=== PATIENT | male | born 1955 | race Caucasian/White ===

== ENCOUNTER → 2018-03-10 12:20 | Outpatient (CLI) | payer MEDICARE, SELFPAY ==
--- NOTE | 2018-03-10 | DI.ECHO.S_ITS ---
[facility]---------+ [facility] +---------+ : : [address] : : : : [id number] : : : : Phone: [phone]+ Echocardiogram Report + + :Name: JAMESON MAX Study Date: 03/10/2018 Height: 70 in : :[facility] Weight: 165 lb: : Gender: Male BSA: 1.9 m2 : :: 1955 Age: 62 yrs BP: 96/70 mmHg: :Reason For Study: Mitral Valve - Replacement : :Ordering Physician: Ester : :Albin Johnson Performed By: Em Presley : :Referring: Shasta Starr : + + Interpretation Summary 1) Normal left ventricular thickness, size, wall motion, and systolic function (EF 60-65%). 2) Normal right ventricular size and function. 3) There is a mechanical mitral valve that is well seated and opens well. Normal prosthetic mitral valve gradients. 4) The right ventricular systolic pressure is estimated at 25 mmHg assuming a right atrial pressure of 3 mm Hg. 5) No prior Echo available for comparison. Procedure: A two-dimensional transthoracic echocardiogram with color flow and Doppler was performed. The study quality was technically adequate. Most of the acoustic windows were suboptimal, but the best imaging was obtained from the subcostal window. The patient was in normal sinus rhythm during the exam. Left Ventricle: The left ventricle is normal in size, wall thickness, and systolic function without any focal wall motion abnormalities. The ejection fraction is estimated to be 60-65%. Right Ventricle: The right ventricle is normal size. The right ventricular systolic function is normal. Atria: The left atrium is moderately dilated. Right atrial size is normal. The interatrial septum is intact with no evidence for an atrial septal defect. Mitral Valve: There is a mechanical mitral valve. The prosthetic mitral valve is well-seated. The prosthetic mitral valve appears to open well. Normal prosthetic mitral valve gradients. The mitral valve mean gradient is 3 mmHg. There is mild mitral regurgitation. Aortic Valve: The aortic valve opens well. There is no aortic valve stenosis. There is trace aortic regurgitation. Tricuspid Valve: The tricuspid valve leaflets are thin and pliable. There is trace tricuspid regurgitation. The right ventricular systolic pressure is estimated at 25 mmHg assuming a right atrial pressure of 3 mm Hg. Pulmonic Valve: The pulmonic valve is not well visualized. Great Vessels: The aortic root is normal size. The ascending aorta could not be visualized. The ascending aorta is at the upper limits of normal in size. The IVC is of normal diameter and collapses greater than 50% with a sniff. This suggests a low right atrial pressure of 3 mm Hg. Pericardium/ Pleura There is no pericardial effusion. There is no pleural effusion. MMode/2D Measurements & Calculations LVIDd: 5.1 cm Ao root diam: 3.8 cm LVIDs: 3.3 cm Aortic Jxn: 2.8 cm FS: 35.3 % Ao Arch Diam (Prox Trans): 3.1 cm IVSd: 0.85 cm LVPWd: 0.91 cm LV denise. diameter/BSA (cm/m^2): 2.7 LV sys. diameter/BSA (cm/m^2): 1.7 LA dimension: 4.6 cm RA long axis: 4.9 cm LA A2 area: 26.4 cm2 RA area: 18.2 cm2 LA A4 area: 26.5 cm2 RA vol: 57.4 ml LA length (vol): 5.3 cm RA : 29.8 ml/m2 LA vol: 111.3 ml IVC diam: 1.5 cm LA vol index: 57.9 ml/m2 RVDd major: 6.9 cm RVD1 (basal): 4.2 cm RVD2 (mid): 3.8 cm Doppler Measurements & Calculations Ao V2 max: 118.5 cm/sec MV E max dilan: 128.4 cm/sec Ao V2 mean: 74.8 cm/sec MV A max dilan: 151.2 cm/sec Ao max P.6 mmHg MV E/A: 0.85 Ao mean P.7 mmHg MV dec time: 0.21 sec Ao V2 VTI: 22.8 cm MV P1/2t: 62.2 msec TR max dilan: 235.2 cm/sec MV P1/2t max dilan: 128.6 cm/sec TR max P.1 mmHg MVA(P1/2t): 3.5 cm2 Reading Physician:02:07 PM
== END ==
PROVIDERS: Family Provider Physician Assistant; PCP Physician Assistant; Visit Provider Internal Medicine Cardiovascular Disease
DX: Z95.2 Presence of prosthetic heart valve (principal)
CPT/HCPCS: 93306

== ENCOUNTER → 2019-02-09 10:52 | Outpatient (CLI) | payer MEDICARE, SELFPAY ==
[2019-02-09 12:13] LABS: Hematocrit 42.9 % (41-53); Hemoglobin 14.4 g/dL (13.5-17.5); Mean Corpuscular HGB Conc 33.5 % (30-36); Mean Corpuscular Hemoglobin 31.6 PG (26-34); Mean Corpuscular Volume 94.3 fL (80-100); Platelet Count 240 X10^3/uL (150-400); Red Blood Cell Count 4.55 X10^6/uL (4.5-5.9); Red Cell Distribution Width 13.4 % (11.6-14.8); White Blood Cell Count 7.2 X10^3/uL (4.5-11.0)
[2019-02-09 12:35] LABS: Alanine Aminotransferase 14 IU/L (21-72); Albumin 4.3 g/dL (3.5-5.0); Albumin Globulin Ratio 1.7 (1.0-2.8); Alkaline Phosphatase 53 U/L (38-126); Aspartate Aminotransferase 30 IU/L (17-59); BUN Creatinine Ratio 13.8 (6-22); Blood Urea Nitrogen 11 mg/dL (9-20); Carbon Dioxide 28 mmol/L (22-32); Chloride 99 mmol/L (98-107); Cholesterol 140 mg/dL (140-199); Estimated Glomerular Filt Rate > 60.0 mL/min (>60); Globulin 2.6 g/dL (1.7-4.1); HDL Cholesterol 34 mg/dL (40-60); HEMOLYSIS < 15 (0-50); LDL Cholesterol Calculated 68 mg/dL (<100); Potassium 4.5 mmol/L (3.4-5.1); Sodium 135 mmol/L (137-145); Total Protein 6.9 g/dL (6.3-8.2); Triglycerides 189 mg/dL (35-150)
[2019-02-09 12:36] LABS: Bilirubin Total 1.5 mg/dL (0.2-1.3); Glucose 83 mg/dL (80-110)
[2019-02-09 13:05] LABS: Prostate Specific Antigen Scrn 2.35 ng/mL (0.1-4.0)
== END ==
PROVIDERS: Visit Provider Nurse Practitioner Family
DX: J44.9 Chronic obstructive pulmonary disease, unspecified (principal); Z13.6 Encounter for screening for cardiovascular disorders; Z12.5 Encounter for screening for malignant neoplasm of prostate; Z12.11 Encounter for screening for malignant neoplasm of colon
CPT/HCPCS: 36415; 80053; 80061; 82274; 85027; G0103

== ENCOUNTER → 2019-05-09 13:11 | Outpatient (CLI) | payer MEDICARE, SELFPAY ==
[2019-05-09 13:39] LABS: INR 1.4 (0.9-1.3); Prothrombin Time 16.6 SECONDS (10.1-12.7)
[2019-05-09 14:31] LABS: Alanine Aminotransferase 16 IU/L (21-72); Albumin 4.3 g/dL (3.5-5.0); Albumin Globulin Ratio 1.7 (1.0-2.8); Alkaline Phosphatase 50 U/L (38-126); Aspartate Aminotransferase 30 IU/L (17-59); Bilirubin Total 1.2 mg/dL (0.2-1.3); Bilirubin Unconjugated 0.9 mg/dL (0.0-1.1); Globulin 2.5 g/dL (1.7-4.1); HEMOLYSIS 24 (0-50); Total Protein 6.8 g/dL (6.3-8.2)
== END ==
PROVIDERS: PCP Nurse Practitioner Family; Visit Provider Nurse Practitioner Family
DX: Z95.2 Presence of prosthetic heart valve (principal); R17 Unspecified jaundice
CPT/HCPCS: 36415; 80076; 85610

== ENCOUNTER → 2019-08-22 08:46 | Outpatient (CLI) | payer MEDICARE, SELFPAY ==
[2019-08-22 09:45] LABS: Add Manual Diff / Slide Review NO; Basophils Absolute Auto 100 /uL (0-100); Eosinophils Absolute Auto 600 /uL (0-450); Eosinophils Percent Auto 8.8 % (2-4); Hematocrit 43.9 % (41-53); Hemoglobin 14.8 g/dL (13.5-17.5); Lymphocytes Absolute Auto 2300 /uL (1100-4500); Mean Corpuscular HGB Conc 33.7 % (30-36); Mean Corpuscular Volume 94.8 fL (80-100); Monocytes Absolute Auto 500 /uL (0-900); Monocytes Percent Auto 7.5 % (3-14); Neutrophils Absolute Auto 3500 /uL (1500-7000); Neutrophils Percent Auto 49.7 % (50-75); Platelet Count 250 X10^3/uL (150-400); Red Blood Cell Count 4.63 X10^6/uL (4.5-5.9); Red Cell Distribution Width 13.5 % (11.6-14.8)
[2019-08-22 10:13] LABS: Alanine Aminotransferase 12 IU/L (<50); Albumin 4.2 g/dL (3.5-5.0); Albumin Globulin Ratio 1.4 (1.0-2.8); Alkaline Phosphatase 43 U/L (38-126); Aspartate Aminotransferase 39 IU/L (17-59); BUN Creatinine Ratio 11.1 (6-22); Bilirubin Total 1.6 mg/dL (0.2-1.3); Blood Urea Nitrogen 10 mg/dL (9-20); Calcium 8.5 mg/dL (8.4-10.2); Carbon Dioxide 32 mmol/L (22-32); Chloride 100 mmol/L (98-107); Cholesterol 174 mg/dL (140-199); Estimated Glomerular Filt Rate > 60.0 mL/min (>60); Globulin 2.9 g/dL (1.7-4.1); Glucose 93 mg/dL (80-110); HDL Cholesterol 34 mg/dL (40-60); HEMOLYSIS < 15 (0-50); LDL Cholesterol Calculated 114 mg/dL (<100); Potassium 4.5 mmol/L (3.4-5.1); Sodium 139 mmol/L (137-145); Total Protein 7.1 g/dL (6.3-8.2); Triglycerides 129 mg/dL (35-150)
== END ==
PROVIDERS: PCP Nurse Practitioner Family; Visit Provider Nurse Practitioner Family
DX: Z13.6 Encounter for screening for cardiovascular disorders (principal)
CPT/HCPCS: 36415; 80053; 80061; 85025

== ENCOUNTER → 2019-11-02 13:37 | Outpatient (CLI) | payer MEDICARE, SELFPAY ==
[2019-11-02 14:16] LABS: INR 3.2 (0.9-1.3); Prothrombin Time 36.9 SECONDS (10.1-12.7)
== END ==
PROVIDERS: PCP Nurse Practitioner Family; Referring Provider Nurse Practitioner Family; Visit Provider Nurse Practitioner Family
DX: Z51.81 Encounter for therapeutic drug level monitoring (principal); Z95.2 Presence of prosthetic heart valve
CPT/HCPCS: 36415; 85610

== ENCOUNTER → 2020-02-26 08:02 | Outpatient (CLI) | payer MEDICARE, SELFPAY ==
[2020-02-26 12:30] LABS: Alanine Aminotransferase 12 IU/L (<50); Albumin 4.3 g/dL (3.5-5.0); Albumin Globulin Ratio 1.6 (1.0-2.8); Alkaline Phosphatase 45 U/L (38-126); Aspartate Aminotransferase 36 IU/L (17-59); BUN Creatinine Ratio 13.5 (6-22); Bilirubin Total 1.1 mg/dL (0.2-1.3); Blood Urea Nitrogen 12 mg/dL (9-20); Carbon Dioxide 24 mmol/L (22-32); Chloride 106 mmol/L (98-107); Cholesterol 153 mg/dL (140-199); Estimated Glomerular Filt Rate > 60.0 mL/min (>60); Globulin 2.7 g/dL (1.7-4.1); Glucose 85 mg/dL (80-110); HDL Cholesterol 33 mg/dL (40-60); HEMOLYSIS < 15 (0-50); LDL Cholesterol Calculated 90 mg/dL (<100); Potassium 4.8 mmol/L (3.4-5.1); Sodium 140 mmol/L (137-145); Triglycerides 149 mg/dL (35-150)
== END ==
PROVIDERS: PCP Nurse Practitioner Family; Referring Provider Nurse Practitioner Family; Visit Provider Nurse Practitioner Family
DX: J44.9 Chronic obstructive pulmonary disease, unspecified (principal); E78.2 Mixed hyperlipidemia
CPT/HCPCS: 36415; 80053; 80061

== ENCOUNTER → 2020-09-17 08:02 | Outpatient (CLI) | payer MEDICARE, SELFPAY ==
[2020-09-17 09:20] LABS: INR 3.8 (0.9-1.3); Prothrombin Time 42.7 SECONDS (10.1-12.7)
[2020-09-17 09:22] LABS: Hematocrit 44.3 % (41-53); Hemoglobin 14.8 g/dL (13.5-17.5); Mean Corpuscular HGB Conc 33.5 % (30-36); Mean Corpuscular Hemoglobin 31.4 PG (26-34); Mean Corpuscular Volume 93.8 fL (80-100); Platelet Count 236 X10^3/uL (150-400); Red Blood Cell Count 4.72 X10^6/uL (4.5-5.9); White Blood Cell Count 6.4 X10^3/uL (4.5-11.0)
[2020-09-17 09:54] LABS: Alanine Aminotransferase 17 IU/L (<50); Albumin 4.6 g/dL (3.5-5.0); Albumin Globulin Ratio 1.5 (1.0-2.8); Alkaline Phosphatase 48 U/L (38-126); Aspartate Aminotransferase 37 IU/L (17-59); BUN Creatinine Ratio 13.8 (6-22); Bilirubin Total 1.2 mg/dL (0.2-1.3); Blood Urea Nitrogen 13 mg/dL (9-20); Calcium 9.6 mg/dL (8.4-10.2); Carbon Dioxide 33 mmol/L (22-32); Chloride 102 mmol/L (98-107); Cholesterol 188 mg/dL (140-199); Estimated Glomerular Filt Rate > 60.0 mL/min (>60); Glucose 96 mg/dL (80-110); HDL Cholesterol 42 mg/dL (40-60); LDL Cholesterol Calculated 120 mg/dL (<100); Sodium 138 mmol/L (137-145); Total Protein 7.6 g/dL (6.3-8.2); Triglycerides 130 mg/dL (35-150)
[2020-09-17 10:19] LABS: HEMOLYSIS 21 (0-50)
[2020-09-17 10:21] LABS: Potassium 6.1 mmol/L (3.4-5.1)
== END ==
PROVIDERS: PCP Nurse Practitioner Family; Referring Provider Nurse Practitioner Family; Visit Provider Nurse Practitioner Family
DX: J44.9 Chronic obstructive pulmonary disease, unspecified (principal); E78.6 Lipoprotein deficiency; Z95.2 Presence of prosthetic heart valve
CPT/HCPCS: 36415; 80053; 80061; 85027; 85610

== ENCOUNTER → 2020-09-18 08:27 | Outpatient (CLI) | payer MEDICARE, SELFPAY ==
[2020-09-18 10:16] LABS: HEMOLYSIS 37 (0-50); Potassium 4.3 mmol/L (3.4-5.1)
== END ==
PROVIDERS: PCP Nurse Practitioner Family; Referring Provider Nurse Practitioner Family; Visit Provider Nurse Practitioner Family
DX: E87.5 Hyperkalemia (principal)
CPT/HCPCS: 36415; 84132

== ENCOUNTER → 2020-10-09 13:33 | Outpatient (CLI) | payer MEDICARE, SELFPAY ==
[2020-10-10 09:04] LABS: Fecal Immunochemical Test Negative (Negative)
== END ==
PROVIDERS: PCP Nurse Practitioner Family; Referring Provider Nurse Practitioner Family; Visit Provider Nurse Practitioner Family
DX: Z12.11 Encounter for screening for malignant neoplasm of colon (principal)
CPT/HCPCS: 82274

== ENCOUNTER → 2021-09-11 15:01 | Outpatient (CLI) | payer MEDICARE, SELFPAY ==
[2021-09-11 17:51] LABS: INR 3.2 (0.9-1.3); Prothrombin Time 37.6 SECONDS (10.1-12.7)
== END ==
PROVIDERS: PCP Nurse Practitioner Family; Referring Provider Nurse Practitioner Family; Visit Provider Nurse Practitioner Family
DX: Z79.01 Long term (current) use of anticoagulants (principal)
CPT/HCPCS: 36415; 85610

== ENCOUNTER → 2022-11-18 07:11 | Outpatient (CLI) | payer MEDICARE, SELFPAY ==
[2022-11-18 08:14] LABS: Add Manual Diff / Slide Review NO; Basophils Absolute Auto 100 /uL (0-100); Basophils Percent Auto 1.6 % (0-2); Eosinophils Absolute Auto 300 /uL (0-450); Eosinophils Percent Auto 4.9 % (2-4); Hematocrit 43.6 % (41-53); Hemoglobin 14.8 g/dL (13.5-17.5); Lymphocytes Absolute Auto 2100 /uL (1100-4500); Lymphocytes Percent Auto 30.6 % (25-40); Mean Corpuscular Hemoglobin 31.3 PG (26-34); Mean Corpuscular Volume 92.1 fL (80-100); Monocytes Absolute Auto 500 /uL (0-900); Monocytes Percent Auto 7.9 % (3-14); Neutrophils Absolute Auto 3800 /uL (1500-7000); Platelet Count 252 X10^3/uL (150-400); Red Blood Cell Count 4.73 X10^6/uL (4.5-5.9); Red Cell Distribution Width 14.3 % (11.6-14.8); White Blood Cell Count 6.8 X10^3/uL (4.5-11.0)
[2022-11-18 08:35] LABS: Alanine Aminotransferase 15 IU/L (<50); Albumin 4.4 g/dL (3.5-5.0); Albumin Globulin Ratio 1.4 (1.0-2.8); Alkaline Phosphatase 53 U/L (38-126); Aspartate Aminotransferase 34 IU/L (17-59); BUN Creatinine Ratio 15.5 (6-22); Bilirubin Total 1.3 mg/dL (0.2-1.3); Blood Urea Nitrogen 16 mg/dL (9-20); Calcium 8.7 mg/dL (8.4-10.2); Carbon Dioxide 31 mmol/L (22-32); Chloride 102 mmol/L (98-107); Cholesterol 179 mg/dL (140-199); Estimated Glomerular Filt Rate > 60 mL/min (>60); Globulin 3.2 g/dL (1.7-4.1); Glucose 105 mg/dL (80-110); HDL Cholesterol 38 mg/dL (40-60); HEMOLYSIS < 15 (0-50); LDL Cholesterol Calculated 115 mg/dL (<100); Potassium 4.8 mmol/L (3.4-5.1); Sodium 141 mmol/L (137-145); Total Protein 7.6 g/dL (6.3-8.2); Triglycerides 131 mg/dL (35-150)
[2022-11-18 09:00] LABS: Prostate Specific Antigen 4.16 ng/mL (0.10-4.00)
== END ==
PROVIDERS: PCP Family Medicine; Referring Provider Family Medicine; Visit Provider Family Medicine
DX: J44.9 Chronic obstructive pulmonary disease, unspecified (principal); N40.0 Benign prostatic hyperplasia without lower urinary tract symptoms
CPT/HCPCS: 36415; 80053; 80061; 84153; 85025

== ENCOUNTER → 2022-12-01 10:47 | Outpatient (CLI) | payer MEDICARE, SELFPAY ==
--- NOTE | 2022-12-01 10:50 | DI.RAD.S_ITS ---
PROCEDURE: XR CHEST 2V INDICATIONS: Chronic Cough TECHNIQUE: 2 views of the chest were acquired. COMPARISON: [facility], CT, PE STUDY (CTA CHEST), 12/10/2017, 14:58. [facility], CR, CHEST 2 VIEW, 12/10/2017, 12:17. FINDINGS: Surgical changes and devices: There is a prosthetic mitral valve.. Lungs and pleura: Retrocardiac opacity may be infiltrate, scar or atelectasis. There is a left hemidiaphragm eventration. Prominent pericardial fat pad is seen on the right side. No pleural effusions or pneumothorax. Mediastinum: Mediastinal contours are normal. Heart size is normal. Bones and chest wall: No suspicious bony abnormalities. Soft tissues appear unremarkable. IMPRESSION: Retrocardiac infiltrate, scar or atelectasis. Dictated by: Swathi Garcia M.D. on 12/01/2022 at 11:27 Approved by: Swathi Garcia M.D. on 12/01/2022 at 11:27
== END ==
PROVIDERS: PCP Family Medicine; Referring Provider Family Medicine; Visit Provider Family Medicine
DX: J44.9 Chronic obstructive pulmonary disease, unspecified (principal); R05.3 Chronic cough
CPT/HCPCS: 71046

== ENCOUNTER → 2022-12-17 15:42 | Outpatient (CLI) | payer MEDICARE, SELFPAY ==
--- NOTE | 2022-12-17 15:43 | DI.CT.S_ITS ---
PROCEDURE: CT CHEST W CON INDICATIONS: abnormal xr TECHNIQUE: After the administration of intravenous contrast, 5 mm thick sections acquired from the pulmonary apices to the posterior costophrenic angles. 1 mm axial lung, 5 mm thick coronal and sagittal reformats and 7 mm axial MIP were acquired. For radiation dose reduction, the following was used: automated exposure control, adjustment of mA and/or kV according to patient size. COMPARISON: [facility], CT, PE STUDY (CTA CHEST), 12/10/2017, 14:58. [facility], CR, XR CHEST 2V, 12/01/2022, 11:09. FINDINGS: Lungs and pleura: Emphysema is present. Similar cyst/pneumatocele medial left lower lobe. Large right-sided Bochdalek hernia containing fat present as before. A right lower lobe cyst/pneumatocele is also present. Mild bronchial wall thickening most pronounced at the lower lobes. No pleural effusion. Mediastinum: No pericardial effusion. Thoracic aorta and central pulmonary arteries are normal in size. Esophagus is normal in caliber. Few prominent/borderline enlarged mediastinal lymph nodes present, significantly decreased since the prior CT. Multivessel coronary artery calcifications and/or stents. Mitral valve prosthesis. Bones and chest wall: No axillary or supraclavicular adenopathy by size criteria. Multilevel degenerative change of the visualized spine. Abdomen: A few scattered small hepatic hypodensities are present, too small to characterize. IMPRESSION: 1. No consolidation visualized. 2. Basilar predominant bronchial wall thickening, nonspecific, could indicate a bronchitis. Dictated by: Rafael Lim M.D. on 12/17/2022 at 21:09 Approved by: Rafael Lim M.D. on 12/17/2022 at 21:25
== END ==
PROVIDERS: PCP Family Medicine; Referring Provider Family Medicine; Visit Provider Family Medicine
DX: J44.9 Chronic obstructive pulmonary disease, unspecified (principal); K44.9 Diaphragmatic hernia without obstruction or gangrene; Z72.0 Tobacco use; Z95.2 Presence of prosthetic heart valve
CPT/HCPCS: 71260; Q9967

== ENCOUNTER → 2023-01-04 09:24 | Outpatient (CLI) | payer MEDICARE, SELFPAY ==
[2023-01-04 10:23] LABS: Prothrombin Time 60.4 SECONDS (10.1-12.7)
[2023-01-04 10:26] LABS: INR 5.2 (0.9-1.3)
== END ==
PROVIDERS: PCP Family Medicine; Referring Provider Family Medicine; Visit Provider Family Medicine
DX: I82.409 Acute embolism and thrombosis of unspecified deep veins of unspecified lower extremity (principal); R97.20 Elevated prostate specific antigen [PSA]
CPT/HCPCS: 36415; 84153; 85610

== ENCOUNTER → 2023-01-11 09:22 | Outpatient (CLI) | payer MEDICARE, SELFPAY ==
[2023-01-11 10:05] LABS: INR 2.2 (0.9-1.3); Prothrombin Time 25.4 SECONDS (10.1-12.7)
== END ==
PROVIDERS: PCP Family Medicine; Referring Provider Family Medicine; Visit Provider Family Medicine
DX: Z79.01 Long term (current) use of anticoagulants (principal)
CPT/HCPCS: 36415; 85610

== ENCOUNTER → 2023-11-19 09:31 | Outpatient (CLI) | payer MEDICARE, SELFPAY ==
[2023-11-19 10:17] LABS: Add Manual Diff / Slide Review NO; Basophils Absolute Auto 100 /uL (0-100); Eosinophils Absolute Auto 200 /uL (0-450); Eosinophils Percent Auto 3.1 % (2-4); Hematocrit 43.6 % (41-53); Hemoglobin 14.8 g/dL (13.5-17.5); Lymphocytes Absolute Auto 2200 /uL (1100-4500); Lymphocytes Percent Auto 30.6 % (25-40); Mean Corpuscular HGB Conc 33.9 % (30-36); Mean Corpuscular Hemoglobin 31.2 PG (26-34); Mean Corpuscular Volume 92.2 fL (80-100); Monocytes Absolute Auto 600 /uL (0-900); Monocytes Percent Auto 7.9 % (3-14); Neutrophils Absolute Auto 4100 /uL (1500-7000); Neutrophils Percent Auto 57.4 % (50-75); Platelet Count 256 X10^3/uL (150-400); Red Blood Cell Count 4.72 X10^6/uL (4.5-5.9); Red Cell Distribution Width 13.6 % (11.6-14.8); White Blood Cell Count 7.1 X10^3/uL (4.5-11.0)
[2023-11-19 10:42] LABS: Alanine Aminotransferase 12 IU/L (<50); Albumin 4.3 g/dL (3.5-5.0); Albumin Globulin Ratio 1.4 (1.0-2.8); Alkaline Phosphatase 51 U/L (38-126); Aspartate Aminotransferase 30 IU/L (17-59); BUN Creatinine Ratio 9.5 (6-22); Bilirubin Total 1.3 mg/dL (0.2-1.3); Blood Urea Nitrogen 9 mg/dL (9-20); Calcium 8.8 mg/dL (8.4-10.2); Carbon Dioxide 31 mmol/L (22-32); Chloride 103 mmol/L (98-107); Cholesterol 173 mg/dL (140-199); Estimated Glomerular Filt Rate > 60 mL/min (>60); Globulin 3.1 g/dL (1.7-4.1); Glucose 84 mg/dL (80-110); HDL Cholesterol 41 mg/dL (40-60); HEMOLYSIS < 15 (0-50); LDL Cholesterol Calculated 92 mg/dL (<100); Potassium 4.8 mmol/L (3.4-5.1); Sodium 136 mmol/L (137-145); Total Protein 7.4 g/dL (6.3-8.2); Triglycerides 200 mg/dL (35-150)
[2023-11-19 11:15] LABS: Prostate Specific Antigen Scrn 4.64 ng/mL (0.1-4.0)
== END ==
PROVIDERS: PCP Family Medicine; Referring Provider Family Medicine; Visit Provider Family Medicine
DX: Z12.5 Encounter for screening for malignant neoplasm of prostate (principal); R97.20 Elevated prostate specific antigen [PSA]; E78.2 Mixed hyperlipidemia; J44.9 Chronic obstructive pulmonary disease, unspecified
CPT/HCPCS: 36415; 80053; 80061; 85025; G0103

== ENCOUNTER → 2023-11-30 10:07 | Outpatient (CLI) | payer MEDICARE, SELFPAY ==
--- NOTE | 2023-11-30 10:25 | DI.CT.S_ITS ---
PROCEDURE: CT LUNG LOW DOSE SCREENING INDICATIONS: lung screening TECHNIQUE: Noncontrast 2.0-2.5 mm thick sections acquired from the pulmonary apices to the posterior costophrenic angles. 7 mm thick axial MIP, and 5 mm coronal and sagittal reformats were then acquired. For radiation dose reduction, the following was used: automated exposure control, adjustment of mA and/or kV according to patient size. COMPARISON: None. FINDINGS: Image quality: Diagnostic. Lower Neck: No enlarged lymph nodes. Thyroid: No thyroid nodules which require sonographic follow up, per consensus guidelines. Axillae: No enlarged lymph nodes. Chest Wall: Unremarkable. Bones: Unremarkable. Lungs and Pleura: No pneumothorax or pleural effusions. Moderate, right Bochdalek hernia containing fat. Moderate centrilobular emphysema. Mild paraseptal emphysema. Heart: Heart size is normal. No pericardial effusion. Marked coronary calcifications for age. Annular calcification mitral valve, with prosthesis. Thoracic Vessels: The aorta and pulmonary arteries demonstrate normal size. Mediastinum and Bri[place]: No enlarged lymph nodes. Esophagus: No wall thickening. No hiatal hernia. Upper Abdomen: Visualized upper abdomen solid organs and bowel loops appear normal. IMPRESSION: No suspicious pulmonary nodules. LUNG-RADS 1; continued annual screening, if eligible. Clinically Significant Non-pulmonary Findings: Marked coronary artery calcifications for age. Consider cardiology referral. Dictated by: Kumar Ortega M.D. on 11/30/2023 at 11:38 Approved by: Kumar Ortega M.D. on 11/30/2023 at 11:46
== END ==
LOC: CT 10:07
PROVIDERS: PCP Family Medicine; Referring Provider Family Medicine; Visit Provider Family Medicine
DX: Z12.2 Encounter for screening for malignant neoplasm of respiratory organs (principal); F17.210 Nicotine dependence, cigarettes, uncomplicated; I25.10 Atherosclerotic heart disease of native coronary artery without angina pectoris; I34.81 Nonrheumatic mitral (valve) annulus calcification; J43.2 Centrilobular emphysema; K45.8 Other specified abdominal hernia without obstruction or gangrene; Z95.2 Presence of prosthetic heart valve
CPT/HCPCS: 71271

== ENCOUNTER → 2023-12-21 09:20 | Outpatient (CLI) | payer MEDICARE, SELFPAY ==
--- NOTE | 2023-12-21 09:30 | DI.ECHO.S_ITS ---
[facility] +---------+ [facility] +---------+ : : [address] : : : : [id number] : : : : Phone: [phone]+ Echocardiogram Report + + :Name: JAMESON MAX Study Date: 12/21/2023 Height: 70 in : :[facility] ReadingLocation: Weight: 180 lb : : Gender: Male BSA: 2.0 m2 : :: 1955 Age: 68 yrs BP: 126/89 mmHg: :Reason For Study: FOLLOW UP VALVE REPLACEMENT : :Ordering Physician: ARBEN, : :MARISOL Performed By: Ayesha Dobbins : :Referring: MARISOL THEODORE : + + Interpretation Summary 1) Normal left ventricular thickness, size, wall motion, and systolic function (EF 55-60%). 2) Normal right ventricular size with mildly reduced function. 3) There is a mechanical mitral valve that is well seated and opens well. Normal prosthetic mitral valve gradients (mean inflor gradient 3.6mmHg). 4) Compared to the Echo done 03/10/2018, no significant change. Procedure: A two-dimensional transthoracic echocardiogram with color flow and Doppler was performed. The study quality was technically adequate. Comparison is made with the echocardiogram of 03/10/2018. The patient was in sinus rhythm with heart rates between 71-78 bpm during the exam. Left Ventricle: The left ventricle is normal in size. Left ventricular wall thickness is mildly increased. The ejection fraction is estimated to be 55- 60%. There are no focal wall motion abnormalities. Septal motion is consistent with post-operative state. Diastolic function could not be accurately assessed due to confounding valvular disease. Right Ventricle: The right ventricle is normal size. Right ventricular systolic function is mildly reduced. Atria: The left atrium is mildly dilated. Right atrial size is normal. There is no Doppler evidence for an interatrial shunt. Mitral Valve: There is a mechanical mitral valve. The mitral valve mean gradient is 3.6 mmHg. There is trace mitral regurgitation. Aortic Valve: The aortic valve is not well visualized. The aortic valve is mildly calcified. There is no aortic valve stenosis. There is trace aortic regurgitation. Tricuspid Valve: The tricuspid valve is normal in structure and function. There is trace tricuspid regurgitation. Pulmonary artery pressures cannot be estimated because of the lack of a measurable TR jet velocity. Pulmonic Valve: The pulmonic valve is not well visualized. There is no pulmonic valvular regurgitation. Great Vessels: The aortic root is normal size. The ascending aorta could not be visualized. The IVC is of normal diameter and collapses greater than 50% with a sniff. This suggests a low right atrial pressure of 3 mm Hg. Pericardium/ Pleura There is no pericardial effusion. There is no pleural effusion. MMode/2D Measurements & Calculations LVIDd: 4.6 cm LVOT diam: 2.7 cm LVIDs: 3.6 cm Ao root diam: 3.5 cm FS: 21.2 % Ao Arch Diam (Prox Trans): 2.9 cm IVSd: 0.95 cm LVPWd: 0.91 cm LV denise. diameter/BSA (cm/m^2): 2.3 LV sys. diameter/BSA (cm/m^2): 1.8 LA A2 area: 29.1 cm2 RA long axis: 4.6 cm LA A4 area: 19.0 cm2 RA area: 15.4 cm2 LA length (vol): 5.5 cm RA vol: 44.1 ml LA vol: 84.6 ml RA : 22.1 ml/m2 LA vol index: 42.4 ml/m2 IVC diam: 1.1 cm RVD1 (basal): 3.0 cm RVD2 (mid): 3.3 cm TAPSE: 1.3 cm Doppler Measurements & Calculations Ao V2 max: 126.7 cm/sec LVOT Max Suresh: 65.3 cm/sec Ao V2 mean: 91.9 cm/sec LV V1 max P.7 mmHg Ao max P.4 mmHg LV V1 VTI: 13.3 cm Ao mean P.7 mmHg FELICE(I,D): 3.0 cm2 Ao V2 VTI: 25.9 cm FELICE(V,D): 3.0 cm2 sev ratio: 0.51 FELICE indexed to BSA (cm^2/m^2): 1.5 MV E max suresh: 101.9 cm/sec TR max suresh: 234.3 cm/sec MV A max suresh: 115.9 cm/sec TR max P.0 mmHg MV E/A: 0.88 Med Peak E' Suresh: 5.1 cm/sec E/E' med: 20.0 Lat Peak E' Suresh: 7.0 cm/sec E/E' lat: 14.6 E/e' average: 17.3 MV dec time: 0.22 sec MVA(VTI): 2.2 cm2 MV V2 mean: 85.8 cm/sec SV(LVOT): 77.3 ml MV mean P.6 mmHg MV V2 VTI: 35.7 cm Reading Physician:12:47 PM
== END ==
PROVIDERS: PCP Family Medicine; Referring Provider Family Medicine; Visit Provider Family Medicine
DX: Z09 Encounter for follow-up examination after completed treatment for conditions other than malignant neoplasm (principal); Z95.2 Presence of prosthetic heart valve
CPT/HCPCS: 93306

== ENCOUNTER → 2024-01-21 07:32 | Outpatient (CLI) | payer MEDICARE, SELFPAY | PROVIDERS: PCP Family Medicine; Referring Provider Family Medicine; Visit Provider Family Medicine | DX: R97.20 Elevated prostate specific antigen [PSA] (principal) | CPT/HCPCS: 36415; 84153; 84154 ==

== ENCOUNTER → 2024-05-24 06:42 | Outpatient (CLI) | payer MEDICARE, SELFPAY ==
--- NOTE | 2024-05-24 07:12 | DI.ECHO.S_ITS ---
[facility] +---------+ [facility] : : [address] : : [id number] : : Phone: [phone] Echocardiogram Report + + :Name: JAMESON MAX Study Date: 05/24/2024 Height: 71 in : :[facility] ReadingLocation: Weight: 165 lb : : Gender: Male BSA: 1.9 m2 : :: 1955 Age: 69 yrs BP: 118/86 mmHg: :Reason For Study: FOLLOW UP VALVE REPLACEMENT : :Ordering Physician: ARBEN, : :MARISOL Performed By: Ayesha Dobbins : :Referring: MARISOL THEODORE : + + Interpretation Summary The left ventricle is normal in size and wall thickness. The ejection fraction is estimated to be 55-60%. The right ventricle is normal size. Visually RV function appears to be preserved. There is a mechanical mitral valve. The prosthetic mitral valve is well-seated. The mitral valve mean gradient is 4.2 mmHg. Previously 3.6 mmHg. Peak E velocity across mitral valve about 1.08 m/s. Previously 1.01 m/s. There is mild tricuspid regurgitation. The right ventricular systolic pressure is estimated to be at least 24 mmHg based on an estimated right atrial pressure of 3 mm Hg. Procedure: A two-dimensional transthoracic echocardiogram with color flow and Doppler was performed. The study quality was technically adequate. Comparison is made with the echocardiogram of 12/21/2023. The heart rate ranged between 72-87 bpm during the study. The patient was in normal sinus rhythm during the exam. Left Ventricle: The left ventricle is normal in size and wall thickness. There is no thrombus. The ejection fraction is estimated to be 55-60%. There are no focal wall motion abnormalities. Diastolic function could not be accurately assessed due to confounding valvular disease. Right Ventricle: The right ventricle is normal size. A calcified moderator band is seen in the right ventricle. Visually RV function appears to be preserved. Atria: The left atrium is moderately dilated. The left atrium has mildly increased in size since the prior echo exam. Right atrial size is normal. There is no Doppler evidence for an interatrial shunt. Mitral Valve: The mitral valve chordae are thickened and/or calcified. There is a mechanical mitral valve. The prosthetic mitral valve is well-seated. The mitral valve mean gradient is 4.2 mmHg. There is trace mitral regurgitation. Aortic Valve: The aortic valve is mildly calcified. The aortic valve is not well visualized. There is mild aortic valve sclerosis. There is no aortic valve stenosis. No aortic regurgitation is present. Tricuspid Valve: The tricuspid valve is normal in structure and function. There is mild tricuspid regurgitation. The right ventricular systolic pressure is estimated to be at least 24 mmHg based on an estimated right atrial pressure of 3 mm Hg. Pulmonic Valve: The pulmonic valve is not well visualized. There is trace pulmonic regurgitation. Great Vessels: The ascending aorta could not be visualized. The IVC is of normal diameter and collapses greater than 50% with a sniff. This suggests a low right atrial pressure of 3 mm Hg. Pericardium/ Pleura There is no pericardial effusion. There is no pleural effusion. MMode/2D Measurements & Calculations LVIDd: 4.6 cm LVOT diam: 2.2 cm LVIDs: 3.2 cm Ao Arch Diam (Prox Trans): 3.2 cm FS: 31.4 % IVSd: 0.84 cm LVPWd: 1.0 cm LV denise. diameter/BSA (cm/m^2): 2.4 LV sys. diameter/BSA (cm/m^2): 1.6 LA A2 area: 26.0 cm2 RA long axis: 5.4 cm LA A4 area: 20.2 cm2 RA area: 17.3 cm2 LA length (vol): 5.5 cm RA vol: 47.3 ml LA vol: 80.5 ml RA : 24.4 ml/m2 LA vol index: 41.4 ml/m2 IVC diam: 0.95 cm RVD1 (basal): 3.3 cm RVD2 (mid): 3.3 cm TAPSE: 1.3 cm Doppler Measurements & Calculations Ao V2 max: 134.1 cm/sec LVOT Max Usresh: 75.7 cm/sec Ao V2 mean: 96.1 cm/sec LV V1 max P.3 mmHg Ao max P.2 mmHg LV V1 VTI: 12.2 cm Ao mean P.0 mmHg FELICE(I,D): 1.8 cm2 Ao V2 VTI: 24.9 cm FELICE(V,D): 2.1 cm2 sev ratio: 0.49 FELICE indexed to BSA (cm^2/m^2): 0.94 Med Peak E' Suresh: 5.7 cm/sec TR max suresh: 229.7 cm/sec Lat Peak E' Suresh: 7.3 cm/sec TR max P.1 mmHg MVA(VTI): 1.4 cm2 PA V2 max: 56.7 cm/sec PA V2 mean: 41.5 cm/sec PA mean P.76 mmHg MV V2 mean: 90.0 cm/sec SV(LVOT): 45.4 ml MV mean P.2 mmHg MV V2 VTI: 32.6 cm Reading Physician:11:35 AM
== END ==
LOC: ECHO 06:42
PROVIDERS: PCP Family Medicine; Referring Provider Family Medicine; Visit Provider Family Medicine
DX: Z95.2 Presence of prosthetic heart valve (principal); I07.1 Rheumatic tricuspid insufficiency
CPT/HCPCS: 93306

== ENCOUNTER → 2024-11-13 08:36 | Outpatient (CLI) | payer MEDICARE, SELFPAY ==
[2024-11-13 10:02] LABS: Add Manual Diff / Slide Review NO; Basophils Absolute Auto 0 /uL (0-100); Basophils Percent Auto 0.6 % (0-2); Eosinophils Absolute Auto 200 /uL (0-450); Eosinophils Percent Auto 2.3 % (2-4); Hemoglobin 16.1 g/dL (13.5-17.5); Lymphocytes Absolute Auto 1700 /uL (1100-4500); Mean Corpuscular HGB Conc 34.3 % (30-36); Mean Corpuscular Hemoglobin 32.1 PG (26-34); Mean Corpuscular Volume 93.7 fL (80-100); Monocytes Absolute Auto 500 /uL (0-900); Monocytes Percent Auto 7.4 % (3-14); Neutrophils Absolute Auto 4900 /uL (1500-7000); Neutrophils Percent Auto 66.7 % (50-75); Platelet Count 268 X10^3/uL (150-400); Red Blood Cell Count 5.01 X10^6/uL (4.5-5.9); Red Cell Distribution Width 14.1 % (11.6-14.8); White Blood Cell Count 7.3 X10^3/uL (4.5-11.0)
[2024-11-13 10:11] LABS: Alanine Aminotransferase 15 IU/L (<50); Albumin Globulin Ratio 1.7 (1.0-2.8); Alkaline Phosphatase 58 U/L (38-126); Aspartate Aminotransferase 32 IU/L (17-59); BUN Creatinine Ratio 9.1 (6-22); Bilirubin Total 1.2 mg/dL (0.2-1.3); Blood Urea Nitrogen 9 mg/dL (9-20); Calcium 9.3 mg/dL (8.4-10.2); Carbon Dioxide 27 mmol/L (22-32); Chloride 102 mmol/L (98-107); Cholesterol 209 mg/dL (140-199); Estimated Glomerular Filt Rate > 60 mL/min (>60); Globulin 2.9 g/dL (1.7-4.1); Glucose 101 mg/dL (80-110); HDL Cholesterol 45 mg/dL (40-60); HEMOLYSIS < 15 (0-50); LDL Cholesterol Calculated 135 mg/dL (<100); Potassium 4.7 mmol/L (3.4-5.1); Sodium 138 mmol/L (137-145); Total Protein 7.9 g/dL (6.3-8.2); Triglycerides 146 mg/dL (35-150)
[2024-11-14 07:09] LABS: PSA Free % 18.1 % (.); PSA, Total 5.8 ng/mL (0.0-4.0)
== END ==
LOC: LAB 08:37
PROVIDERS: PCP Family Medicine; Referring Provider Family Medicine; Visit Provider Family Medicine
DX: R97.20 Elevated prostate specific antigen [PSA] (principal); E78.2 Mixed hyperlipidemia; R41.89 Other symptoms and signs involving cognitive functions and awareness; J44.9 Chronic obstructive pulmonary disease, unspecified
CPT/HCPCS: 36415; 80053; 80061; 84153; 84154; 85025

== ENCOUNTER → 2024-11-15 08:37 | Outpatient (CLI) | payer MEDICARE, SELFPAY ==
--- NOTE | 2024-11-15 08:39 | DI.CT.S_ITS ---
PROCEDURE: CT HEAD/BRAIN WO CON INDICATIONS: eval cognitive decline TECHNIQUE: Noncontrast 4.5 mm thick angled axial sections acquired from the foramen magnum to the vertex, with coronal and sagittal reformats. For radiation dose reduction, the following was used: automated exposure control, adjustment of mA and/or kV according to patient size. COMPARISON: None. FINDINGS: Image quality: Diagnostic. CSF spaces: Basal cisterns are patent. No extra-axial fluid collections. Ventricles are normal in size and shape. Brain: No midline shift. No intracranial masses or hemorrhage. Stevens-white matter interface is normal. Moderate atrophy and chronic ischemic change Skull and face: Calvarium and visualized facial bones are intact, without suspicious lesions. Sinuses: Visualized sinuses and mastoids are clear. IMPRESSION: No acute intracranial pathology. Moderate atrophy and white matter chronic ischemic change Approved by: Teo Corona M.D. on 11/15/2024 at 11:46
--- NOTE | 2024-11-15 08:39 | DI.CT.S_ITS ---
PROCEDURE: CT LUNG LOW DOSE SCREENING INDICATIONS: NICOTINE DEPENDENCE TECHNIQUE: Noncontrast 2.0-2.5 mm thick sections acquired from the pulmonary apices to the posterior costophrenic angles. 7 mm thick axial MIP, and 5 mm coronal and sagittal reformats were then acquired. For radiation dose reduction, the following was used: automated exposure control, adjustment of mA and/or kV according to patient size. COMPARISON: [facility], CT, CT LUNG LOW DOSE SCREENING, 11/30/2023, 10:15. FINDINGS: Image quality: Diagnostic Lungs and pleura: Moderate emphysema. No dense airspace disease or pleural effusion. Large cyst in the lower lobes again seen, stable. No definite thickened wall. Mild atelectasis and subtle nodularity in the lower lobes, likely bronchitis and infection/inflammation. There is a new nodular area in the periphery of the right upper lung measuring 5-6 millimeters (/98) Mediastinum, heart, and esophagus: Dense annular and coronary calcifications and mitral annuloplasty Normal heart size. No pathologic lymph nodes by size criteria. Chest wall and thyroid: Unremarkable Upper abdomen: No gross abnormality on these low-dose noncontrast images. Bones: No aggressive appearing osseous abnormality. Partially seen cervical fusion hardware IMPRESSION: New nodular area in the periphery of the right upper lung measuring 5-6 millimeters (/98). This could represent nodular area of atelectasis. LUNG-RADS 3; 6 month follow-up recommended. This is probably benign. Other findings as above. Dictated by: John Morrow M.D. on 11/15/2024 at 13:55 Approved by: John Morrow M.D. on 11/15/2024 at 14:26
== END ==
PROVIDERS: PCP Family Medicine; Referring Provider Family Medicine; Visit Provider Family Medicine
DX: F17.210 Nicotine dependence, cigarettes, uncomplicated (principal); F03.90 Unspecified dementia, unspecified severity, without behavioral disturbance, psychotic disturbance, mood disturbance, and anxiety; R41.89 Other symptoms and signs involving cognitive functions and awareness; Z12.2 Encounter for screening for malignant neoplasm of respiratory organs; J43.9 Emphysema, unspecified; I25.10 Atherosclerotic heart disease of native coronary artery without angina pectoris; Z98.1 Arthrodesis status
CPT/HCPCS: 70450; 71271

== ENCOUNTER → 2025-01-02 09:10 | Outpatient (CLI) | payer MEDICARE, SELFPAY ==
--- NOTE | 2025-01-02 09:11 | DI.MRI.S_ITS ---
PROCEDURE: MR PELVIC PROSTATE PROTOCOL INDICATIONS: 69 y/o M w/ elevated PSA, please eval. TECHNIQUE: Coronal HASTE, axial T1 FSE with fat saturation, 3-plane nonbreath-hold T2 FSE. After the administration of contrast, dynamic axial, delayed axial and coronal VIBE or 2-D FLASH with fat saturation through the pelvis. Diffusion weighted imaging and ADC was performed. COMPARISON: None. FINDINGS: Image quality: Diffusion weighted and dynamic contrast enhanced images are diagnostic. Prostate: Gland size is 4.4 x 5.6 x 4.1 cm; ellipsoid gland volume is 55 mL. PSA density: 0.105 Lesion 1: Location: Anterior transition zone, left of midline, mid gland to apex, on axial series 4, image 14 and coronal series 5, image 9. Size: 0.9 x 0.7 cm. T2W signal: Hypointense. Non circumscribed . DWI signal: Markedly hyperintense. ADC signal: Markedly hypointense. Enhancement: Yes. Extracapsular extension: No. No neurovascular involvement. PI-RADS score: 4 Lesion 2: Location: Left lateral peripheral zone, mid gland to base, on axial series 4, image 9 and coronal series 5, image 14. Size: 0.3 x 0.6 cm. T2W signal: Hypointense. DWI signal: Mildly hyperintense. ADC signal: Markedly hypointense. Enhancement: Yes. Extracapsular extension: No. No neurovascular involvement. PI-RADS score: 4 Genitourinary system: Trabeculated bladder wall. Distal ureters are non distended. Bowel and peritoneum: No pathologic free pelvic fluid. Inferior colon and small bowel loops are normal in caliber. Colonic diverticulosis without evidence of diverticulitis. Nodes and vessels: No pelvic or inguinal adenopathy by size criteria. Iliac vessels are normal in caliber. Soft tissues: No inguinal hernias. Bones: Marrow demonstrates normal overall signal, without lesions to suggest metastases. IMPRESSION: PI-RADS 4 lesions, as above. No pelvic lymphadenopathy by size criteria. No aggressive osseous abnormality. Dictated by: Kumar Ortega M.D. on 01/02/2025 at 14:49 Approved by: Kumar Ortega M.D. on 01/02/2025 at 15:23
== END ==
PROVIDERS: PCP Family Medicine; Referring Provider Urology; Visit Provider Urology
DX: N42.9 Disorder of prostate, unspecified (principal); R97.20 Elevated prostate specific antigen [PSA]; N32.89 Other specified disorders of bladder; K57.90 Diverticulosis of intestine, part unspecified, without perforation or abscess without bleeding
CPT/HCPCS: 72197; A9579

== ENCOUNTER → 2025-03-26 08:52 | Outpatient (CLI) | payer MEDICARE, SELFPAY ==
[2025-03-26 10:39] LABS: INR 1.3 (0.9-1.3); Prothrombin Time 14.9 SECONDS (9.4-12.5)
== END ==
PROVIDERS: PCP Family Medicine; Referring Provider Family Medicine; Visit Provider Family Medicine
DX: Z79.01 Long term (current) use of anticoagulants (principal)
CPT/HCPCS: 36415; 85610

== ENCOUNTER → 2025-04-03 12:48 | Outpatient (CLI) | payer MEDICARE, SELFPAY ==
[2025-04-03 14:25] LABS: INR 2.3 (0.9-1.3); Prothrombin Time 25.3 SECONDS (9.4-12.5)
== END ==
PROVIDERS: PCP Family Medicine; Referring Provider Family Medicine; Visit Provider Family Medicine
DX: Z79.01 Long term (current) use of anticoagulants (principal)
CPT/HCPCS: 85610

== ENCOUNTER → 2025-04-11 12:10 | Outpatient (CLI) | payer MEDICARE, SELFPAY ==
[2025-04-11 13:28] LABS: INR 2.9 (0.9-1.3); Prothrombin Time 32.0 SECONDS (9.4-12.5)
== END ==
PROVIDERS: PCP Family Medicine; Referring Provider Family Medicine; Visit Provider Family Medicine
DX: Z79.01 Long term (current) use of anticoagulants (principal)
CPT/HCPCS: 36415; 85610

== ENCOUNTER → 2025-06-29 10:01 | Outpatient (CLI) | payer MEDICARE, SELFPAY | PROVIDERS: PCP Family Medicine; Visit Provider Urology | DX: N40.1 Benign prostatic hyperplasia with lower urinary tract symptoms (principal) | CPT/HCPCS: 87086 ==

== ENCOUNTER 2025-07-06 06:09 | Day surgery (SDC) | payer MEDICARE, SELFPAY ==
[2025-06-27 15:15] VITALS: BMI 24.3
[2025-06-28 09:09] VITALS: BMI 24.3
[2025-07-06] VITALS (7 sets, daily range): BP systolic 91–124; BP diastolic 55–81; PULSE 69–90; RESP 16; TEMP 36.2; O2SAT 97–99
[2025-07-06] MEDS: LACTATED RINGERS 1,000 ML 42 ML IV (06:45)
[2025-07-06 07:18] LABS: INR 1.1 (0.9-1.3); Prothrombin Time 12.6 SECONDS (9.4-12.5)
--- NOTE | 2025-07-06 07:29 | PM.PREOP ---
Pre-operative Note COVID-19 COVID-19 status: Not tested Interval Note History & Physical reviewed/Exam performed by Physician: Yes Changes to H&P: No
[2025-07-06] MEDS: LIDOCAINE 1% 20 ML INJ (07:50)
--- NOTE | 2025-07-06 08:07 | P.OP_ITS ---
Operative Date/Time/Diagnoses Date of procedure: 07/06/25 Time of procedure: 07:50 Pre-op diagnosis: Elevated PSA Post-op diagnosis: same Procedure & Clinicians Procedure: Transrectal ultrasound guided prostate biopsy Same procedure(s) as scheduled: Yes Indications: 70 y/o M noted to have an elevated PSA in the absence of a FH of prostate ca ncer, a benign KENZIE in Urology clinic in December of 2024 and a prostate MRI that noted two PIRADS 4 lesions. Discussed elevated PSA in detail and that an elevated PSA value does not represent cancer and that it can be elevated for a multitude of reasons (recent UTI, pratt catheterization, urinary obstruction, multiple ejaculations, colonoscopy, etc...). Also discussed that a TRUS prostate biopsy may not always identify prostate cancer that is present as it is a small sampling of the prostate gland and small foci of cancer may be missed. Lastly, discussed that some men may require multiple biopsies over several years in order to properly diagnose their prostate cancer. Discussed the risks of the procedure to include pain, bleeding, infection, blood in the stool for several weeks, blood and/or blood clots within the urine for several weeks as well as bloody ejaculate for several months. Up to 1-2% of men may get an infection from their biopsy that is severe enough that they require admission to the hospital and administration of IV antibiotics. To mitigate this risk, he will use a bowel prep the night before and the morning of the procedure as well as take an antibiotic the morning before, the morning of and the morning after his biopsy. Discussed the need for a prostate biopsy under anesthesia. Surgeon: Dave Hazel Assisted?: No Anesthesia Type: MAC +/- Operative Notes Findings: 55g prostate Closure Type: not applicable Specimen(s): other (prostate biopsy) Applied: none Estimated Blood Loss (mL): 2 Procedure in detail: Transrectal Ultrasound of the Prostate with Needle Biopsy: [id number] Indication: 70 y/o M w/ an elevated PSA and two concerning PIRADS 4 lesions on his prostate MRI (left anterior transition zone and left lateral peripheral zone). Following informed consent, he was transitioned into the left lateral decubitus position. The ultrasound probe was then coated in lubrication and gently inserted into his rectum. A total of 10cc of 1% Lidocaine was used for local anesthetic throughout the procedure. Transrectal US images of his prostate were then performed and a volume of 55 cc was calculated. A total of 12 biopsies were taken from the prostate and submitted as six different pathologic specimens (right base, right mid, right apex, left base, left mid, left apex). An additional 3 biopsies were then taken from each of the aforementioned PIRADS 4 lesions and submitted as lesion 1 and lesion 1. Hemostasis was evaluated at the end of the procedure and noted to be excellent. He tolerated the procedure well without any complications and the ultrasound probe was gently removed from his rectum. Complications: none Post-operative Condition: stable Disposition: PACU Plan for aftercare: Discharge home from PACU. Will return to Urology clinic in a few weeks to discuss his pathology results.
== END 2025-07-06 08:49 | disposition home or self-care (01) ==
PROVIDERS: PCP Family Medicine; Referring Provider Urology; Visit Provider Urology
PROC: 0VJ43ZZ Inspection of Prostate and Seminal Vesicles, Percutaneous Approach (ICD-10-PCS; CPT 55876; principal; 2025-07-06 07:45)
DX: R97.20 Elevated prostate specific antigen [PSA] (principal); R35.1 Nocturia; Z79.01 Long term (current) use of anticoagulants; Z95.2 Presence of prosthetic heart valve; Z72.0 Tobacco use
CPT/HCPCS: 55700; 76872; 85610; J2704; J7120